=== PATIENT | male | born 1960 | race Caucasian/White ===

== ENCOUNTER 2021-04-28 12:11 | Emergency (ER) | payer MEDICAID ==
[~2021-04-28] VITALS: Ht 167.6 cm; Wt 68.0 kg
[2021-04-28 12:20] VITALS: BP_SYST 129
--- NOTE | 2021-04-28 12:26 | NUR ---
JONATHAN AND ASKED TO WAIT IN THE WAITING ROOM
[2021-04-28 13:03] LABS: BASOPHILS # (AUTO) 0.1 K/uL (0.0-0.2); BASOPHILS % (AUTO) 0.7 % (0.0-2.0); EOSINOPHILS # (AUTO) 0.1 K/uL (0.0-0.4); EOSINOPHILS % (AUTO) 1.6 % (0.0-4.0); HEMOGLOBIN 14.8 g/dL (14.0-18.0); LYMPHOCYTES # (AUTO) 2.4 K/uL (1.0-5.5); LYMPHOCYTES % (AUTO) 25.7 % (20.5-51.5); MEAN CORPUSCULAR HEMOGLOBIN 34 pg (27-31); MEAN CORPUSCULAR HGB CONC 35 % (32-36); MEAN CORPUSCULAR VOLUME 98 fL (79.0-98.0); MONOCYTES # (AUTO) 0.7 K/uL (0.0-1.0); MONOCYTES % (AUTO) 7.4 % (1.7-9.3); NEUTROPHILS % (AUTO) 64.6 % (40.0-70.0); PLATELET COUNT (AUTO) 209 K/uL (130-430); RED BLOOD CELL COUNT(AUTO) 4.41 MIL/uL (4.2-6.2); RED CELL DISTRIBUTION WIDTH 13.5 % (9.0-15.0); WHITE BLOOD COUNT (AUTO) 9.3 K/uL (4.8-10.8)
--- NOTE | 2021-04-28 13:09 | NUR ---
Patient to ER bed 8 to gown for evaluation. Side rails up. Report given to Ezequiel MILLER.
[2021-04-28 13:16] LABS: CALCIUM 8.8 mg/dL (8.4-11.0); CREATININE 1.01 mg/dL (0.55-1.30); POTASSIUM 3.5 mmol/L (3.5-5.1)
[2021-04-28 13:20] LABS: ALBUMIN 3.6 g/dL (3.4-4.8); C-REACTIVE PROTEIN QUANT 0.3 mg/dL (0-0.5); TOTAL BILIRUBIN 0.5 mg/dL (0.0-1.0)
[2021-04-28 13:21] LABS: INR 0.9 (0.80-1.20)
--- NOTE | 2021-04-28 13:24 | NUR ---
ALICJA Lopez at bedside examining patient.
[2021-04-28 14:05] LABS: BILIRUBIN,URINE NEGATIVE (NEGATIVE); BLOOD, URINE NEGATIVE (NEGATIVE); CLARITY/URINE CLEAR (CLEAR); COLOR,URINE YELLOW (YELLOW); GLUCOSE,URINE NEGATIVE (NEGATIVE); KETONES,URINE NEGATIVE (NEGATIVE); LEUKOCYTE ESTERASE ,URINE NEGATIVE (NEGATIVE); NITRITE, URINE NEGATIVE (NEGATIVE); PH,URINE 5.5 (5.0-8.0); PROTEIN URINE NEGATIVE (NEGATIVE); UROBILINOGEN,URINE 0.2 (0.2-1.0)
[2021-04-28] MEDS ORDERED: IBUP-1969 PO (14:10)
[2021-04-28] MEDS ORDERED: HYDR-3917 PO (14:10)
--- NOTE | 2021-04-28 14:22 | NUR ---
Patient given written and verbal discharge instructions and verbalizes understanding. ER MD discussed with patient the results and treatment provided. Patient in stable condition. ID arm band removed. Patient educated on pain management and to follow up with PMD. Pain Scale . Opportunity for questions provided and answered. Medication side effect fact sheet provided.
[2021-04-28 14:24] VITALS: BP_SYST 147
== END 2021-04-28 14:22 | disposition home or self-care (01) ==
LOC: SED 12:11
DX: R10.32 Left lower quadrant pain (principal)
CPT/HCPCS: 36415; 76376; 80053; 81003; 82150; 83605; 83615; 83690; 85025; 85610-TC; 85730-TC; 86140; 99284